=== PATIENT | male | born 2000 | race Two or more races ===

== ENCOUNTER 2021-10-11 19:17 | Emergency (ER) | payer OTHER, SELFPAY ==
[2021-10-11 20:13] VITALS: BP 180/95; PULSE 116; RESP 18; TEMP 37.7; O2SAT 99; BMI 28.8
== END 2021-10-11 22:10 | disposition left against medical advice (07) ==
PROVIDERS: Emergency Provider Emergency Medicine
DX: S09.90XA Unspecified injury of head, initial encounter (principal); W20.8XXA Other cause of strike by thrown, projected or falling object, initial encounter; Y93.9 Activity, unspecified; Y92.89 Other specified places as the place of occurrence of the external cause; Y99.0 Civilian activity done for income or pay
CPT/HCPCS: 99281

== ENCOUNTER 2021-10-12 12:02 | Emergency (ER) | payer OTHER, SELFPAY ==
--- NOTE | ~2021-10-12 | CT_ITS ---
EXAMINATION: CT HEAD WITHOUT CONTRAST CLINICAL INFORMATION: Head CT from yesterday COMPARISON: None TECHNIQUE: Contiguous axial imaging was performed from the skull base to vertex without intravenous administration of contrast. This CT examination was performed using dose optimization techniques as appropriate, variously including the following: *Automated exposure control *Adjustment of mA and/or kV according to patient size (this includes techniques or standardized protocols for targeted exams where dose is matched to indication/reason for exam; i.e. extremities or head) *Use of iterative reconstruction technique DLP: 738 mGy-cm FINDINGS: There is no evidence of an extra-axial collection. There is no evidence of intra-axial or extra-axial hemorrhage. The ventricles and extra-axial CSF spaces are appropriate. No mass, mass effect or infarct is seen in review of bone windows is normal. No skull fracture is seen. Visualized paranasal sinuses, mastoid air cells and middle ears are clear. CT/CT head/brain wo IV con IMPRESSION: Unremarkable exam.
--- NOTE | ~2021-10-12 | XR_ITS ---
EXAMINATION: XR SHOULDER, LEFT CLINICAL INFORMATION: Shoulder pain status post trauma COMPARISON: None TECHNIQUE: AP external rotation, Grashey, scapular Y, and axillary views of the left shoulder. FINDINGS: The bones and soft tissues are normal. No fracture. Glenohumeral and acromioclavicular alignment is anatomic with normal joint space. No abnormal soft tissue calcifications. XR/XR shoulder LT min 2V IMPRESSION: Normal left shoulder.
[2021-10-12 12:11] VITALS: BP 160/84; PULSE 114; RESP 18; TEMP 36.6; O2SAT 97; BMI 30.4
--- NOTE | 2021-10-12 13:03 | ED.HEATRA ---
HPI - Head Injury General Chief complaint: Head Injury Stated complaint: head INJ/work INJ Time Seen by Provider: 10/12/21 12:33 Source: patient Mode of arrival: ambulatory Limitations: no limitations History of Present Illness HPI Narrative: 21-year-old male presents to the ER for evaluation of headache, dizziness after head injury at work yesterday. 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 He was wearing a hard hat when he was hit in the head with a wooden panel yesterday while at work. It scraped down his left shoulder. He did not lose consciousness. He went home after the injury and try to rest. He woke up this morning still having generalized headaches, dizziness and some left shoulder pain with movement. MD Complaint: head injury and other (Left shoulder pain) Onset (ago): day(s) (1) Mechanism of Injury: work related injury Place: work Loss of Consciousness: no Location of injury: parietal Severity: moderate Severity scale (1-10): 5 Quality: dull Radiation: none Other Injuries: upper extremity Associated symptoms: denies other symptoms Related Data Allergies Allergy/AdvReac Type Severity Reaction Status Date / Time No Known Allergies Allergy Unverified 10/31/19 17:23 Review of Systems Review of Systems: Constitutional: No Fever, No Chills ENT/Mouth: No sore throat, No Rhinorrhea, No Swallowing Difficulty Eyes: No Eye Pain, No vision changes Cardiovascular: No Chest Pain, No SOB Respiratory: No Cough, No Sputum, No Wheezing, No dyspnea Gastrointestinal: No Nausea, No Vomiting,No abdominal Pain Musculoskeletal: + joint pain, No Myalgias Skin: + Skin Lesions, No rash Neuro: No Weakness, No Numbness, + Dizziness, + Headache Psych: No Anxiety/Panic, No Depression Heme/Lymph: No Bruising, No Lymphadenopathy PMFSH Social History Social History Advance Directives: No Advance Directives Information Provided: Yes Physical Exam Vital Signs: Vital Signs: Last Vital Signs Temp 98 F 10/12/21 12:11 Pulse 114 H 10/12/21 12:11 Resp 18 10/12/21 12:11 BP 160/84 H 10/12/21 12:11 Pulse Ox 97 10/12/21 12:11 O2 Del Method 10/12/21 12:11 BMI result Body Mass Index 30.4 Appearance: Alert. Oriented X3. No acute distress. Head: Normocephalic, atraumatic. Eyes: Pupils equal, round and reactive to light. ENT: Pharynx normal. Neck: Normal inspection. Neck supple. No midline tenderness. Normal CVS: Normal heart rate and rhythm. Pulses normal. Respiratory: No respiratory distress. Breath sounds normal. Skin: Skin warm and dry. Normal skin color. Normal skin turgor. No rashes. Extremities: Left anterior shoulder with 2 small superficial abrasions. pain with full abduction to 180 degrees. No lower extremity edema. Neuro: Oriented X 3. No motor deficit. No sensory deficit. 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 Course Course Course Narrative: 21-year-old male presents to the ER for evaluation of headache and dizziness after head injury yesterday at work. He was wearing a hard hat. He has no loss of consciousness. He also reports left shoulder pain and has some pain with range of motion. Doubt acute fracture. X-ray is pending. Will also get CT the head to rule out slow bleed or traumatic injury, low clinical suspicion. Reevaluation(s) Reevaluation #1: CT head is unremarkable. Shoulder x-ray is normal. At this time patient is stable for discharge home with supportive care, counseled on signs and symptoms of mild concussion as well as return precautions. He will follow up with were connection. Work note provided per request. Stable for DC home. Discharge Plan Discharge Clinical Impression: Closed head injury, Contusion of left shoulder Patient Disposition: Home, Self-Care Instructions: Head Injury (ED), Contusion in Adults (ED) Additional Instructions: Your CT scan today was normal. Your x-ray of your shoulder was normal. You may or may not have a mild concussion. Treatment is rest, both mental and physical rest. Avoid screen time. Take Tylenol and Motrin as needed for headaches. Follow-up with her primary care doctor and the work connection. Referrals: [facility] [Provider Group] Stand Alone Forms: Work/School Release
== END 2021-10-12 14:59 | disposition home or self-care (01) ==
PROVIDERS: Emergency Provider Emergency Medicine
DX: S09.90XA Unspecified injury of head, initial encounter (principal); S40.012A Contusion of left shoulder, initial encounter; W20.8XXA Other cause of strike by thrown, projected or falling object, initial encounter; Y93.89 Activity, other specified; Y92.59 Other trade areas as the place of occurrence of the external cause; Y99.0 Civilian activity done for income or pay
CPT/HCPCS: 70450; 73030; 99283; 99284